=== PATIENT | male | born 1960 | race Two or more races ===

== ENCOUNTER 2020-03-09 22:39 | Emergency (ER) | payer OTHER ==
[~2020-03-09] VITALS: Ht 165.1 cm; Wt 70.3 kg
== END 2020-03-10 02:48 | disposition left against medical advice (07) ==
LOC: ER 22:39
DX: R53.1 Weakness (principal)

== ENCOUNTER 2025-02-11 15:37 | Emergency (ER) | payer OTHER ==
[~2025-02-11] VITALS: Ht 167.6 cm; Wt 74.8 kg
[2025-02-11] MEDS ORDERED: KETOROLAC TROMETHAMINE 30 MG VIAL IM STA (17:10)
[2025-02-11] MEDS ORDERED: DEXAMETHASONE SODIUM PHOSPHATE 4 MG/ML VIAL IM STA (17:10)
[2025-02-11] MEDS ORDERED: ORPHENADRINE CITRATE 30 MG/ML AMPUL IM STA (17:11)
[2025-02-11 19:52] LABS: BASO % 0.6 % (0.1-1.2); EOS # 0.15 (0.04-0.54); EOS % 1.8 % (0.7-7.0); LYMPH # 1.96 (1.18-3.74); LYMPH % 23.3 % (19.3-53.1); MEAN PLATELET VOLUME 8.30 fl (9.4-12.4); MONO # 1.01 (0.24-0.82); MONO % 12.0 % (4.7-12.5); NEUT # 5.20 (1.56-6.13); NEUT % 61.7 % (34.0-71.1); RED CELL DISTRIBUTION WIDTH 11.8 % (11.6-14.4)
[2025-02-11 20:47] LABS: BUN CREA RATIO 8.0 (7.0-25.0); CREATININE SERUM 1.23 mg/dL (0.70-1.30); GFR 59.24; GLUCOSE FASTING 83.0 mg/dL (65-100); OSMOLALITY SERUM 278.0 MOSM/KG (275-295)
[2025-02-11] MEDS ORDERED: MEDROLPACK PO (22:00)
[2025-02-11] MEDS ORDERED: DICLOFENAC POTA50 MG PO (22:00)
== END 2025-02-11 23:47 | disposition home or self-care (01) ==
LOC: ER 15:38
PROVIDERS: General Practice
DX: S20.224A Contusion of middle back wall of thorax, initial encounter (principal); W17.89XA Other fall from one level to another, initial encounter; Y93.89 Activity, other specified; Y92.89 Other specified places as the place of occurrence of the external cause; Y99.9 Unspecified external cause status; K76.0 Fatty (change of) liver, not elsewhere classified